=== PATIENT | male | born 1955 | race Hispanic/Latino ===

== ENCOUNTER 2022-05-03 03:47 | Emergency (ER) | payer OTHER, MEDICARE ==
[~2022-05-03] VITALS: Ht 165.1 cm; Wt 64.9 kg
[~2022-05-03 03:47] MED LIST: ASPI-1197 PO; BUSP10TA3 PO; CEFD300C3 PO; FAMO40TA7 PO; LEVO25TA85 PO; METF-446 PO; METO25TA6 PO; NIFE-40 PO; NORT25CA3 PO; PANT40TA54 PO; PIOG30TA70 PO; ROSU20TA31 PO; SITA100T12 PO; SUCR1TAB2 PO; TAMS-1 PO
[2022-05-03 04:19] LABS: BASOPHILS % (AUTO) 0.2 % (0.0-5.0); EOSINOPHILS % (AUTO) 0.1 % (0.0-8.0); HEMATOCRIT 35.7 % (42-54); LYMPHOCYTES % (AUTO) 6.7 % (21.0-51.0); MEAN CORPUSCULAR HEMOGLOBIN 28.8 pg (27.0-33.0); MEAN CORPUSCULAR HGB CONC 32.5 g/dL (32.0-36.0); MEAN CORPUSCULAR VOLUME 88.6 fL (79-99); MONOCYTES % (AUTO) 3.7 % (3.0-13.0); NEUTROPHILS % (AUTO) 88.8 % (40.0-77.0); PLATELET COUNT (AUTO) 235 K/uL (130-400); RED BLOOD CELL COUNT(AUTO) 4.03 MIL/uL (4.50-6.20); RED CELL DISTRIBUTION WIDTH 15.7 % (11.0-15.5); WHITE BLOOD COUNT (AUTO) 16.6 K/uL (4.8-10.8)
[2022-05-03 04:27] LABS: APPEARANCE,URINE CLEAR (CLEAR); BILIRUBIN,URINE NEGATIVE (NEGATIVE); COLOR,URINE LIGHT-YELLOW (YELLOW); GLUCOSE, URINE (UA) >=1000 mg/dL (NEGATIVE); KETONES,URINE 20 mg/dL (NEGATIVE); LEUKOCYTE ESTERASE ,URINE NEGATIVE Leu/uL (NEGATIVE); NITRATE,URINE NEGATIVE (NEGATIVE); OCCULT BLOOD,URINE SMALL (NEGATIVE); PROTEIN,URINE 20 mg/dL (NEGATIVE); UROBILINOGEN,URINE 0.2 mg/dL (0.2-1.0)
[2022-05-03 04:28] LABS: CREATININE 0.8 mg/dL (0.5-1.5); POTASSIUM 3.8 mmol/L (3.5-5.1)
[2022-05-03 04:30] LABS: MUCUS,URINE FEW LPF (None Seen); WBC,URINE 0-1 /HPF (0-1)
[2022-05-03] MEDS ORDERED: MORPHINE 4 MG SYG ONE (04:30)
[2022-05-03] MEDS ORDERED: ONDANSETRON 4MG INJ IVP ONE (04:30)
[2022-05-03] MEDS ORDERED: ONDANSETRON 4MG INJ ONE (04:30)
[2022-05-03 04:32] LABS: ALBUMIN 3.5 g/dL (3.5-5.0); TOTAL PROTEIN, SERUM 7.8 g/dL (6.0-8.3)
[2022-05-03] MEDS ORDERED: MORPHINE 4 MG SYG IVP ONE (05:00)
[2022-05-03] MEDS ORDERED: ONDA-104 PO (05:22)
[2022-05-03] MEDS ORDERED: IBUP-1493 PO (05:22)
[2022-05-03] MEDS ORDERED: OMEP40CA21 PO (05:22)
[2022-05-03 05:52] VITALS: BP 139/72
== END 2022-05-03 05:54 | disposition home or self-care (01) ==
LOC: EDH 03:47
DX: K80.20 Calculus of gallbladder without cholecystitis without obstruction (principal); E11.9 Type 2 diabetes mellitus without complications; E78.00 Pure hypercholesterolemia, unspecified; I11.0 Hypertensive heart disease with heart failure; I50.9 Heart failure, unspecified; Z90.89 Acquired absence of other organs; Z98.890 Other specified postprocedural states; Z79.84 Long term (current) use of oral hypoglycemic drugs; Z79.82 Long term (current) use of aspirin; Z79.899 Other long term (current) drug therapy
CPT/HCPCS: 99285; 96374; 76705; 96375; 80053; 83690; 85025; 81001; 36415; 93005; J2405; J2270